=== PATIENT | female | born 1995 | race Two or more races ===

== ENCOUNTER 2016-10-12 11:55 | Emergency (ER) | payer OTHER ==
[2016-10-12] MEDS ORDERED: NS 1,000 ML IV ONE (12:06)
[2016-10-12 12:38] LABS: % IMMATURE GRANULYOCYTES 0.4 % (0.0-1.1); ABSOLUTE IMMATURE GRANULOCYTES 0.04 10^3/uL (0.00-0.10); ADD DIFF? NO; ADD MORPH? NO; ADD SCAN? NO; ATYPICAL LYMPHOCYTE FLAG 30 (0-99); FRAGMENT RBC FLAG 0 (0-99); HEMATOCRIT 37.6 % (38.0-47.0); HEMOGLOBIN 12.4 g/dL (12.6-16.3); LEFT SHIFT FLG 0 (0-99); LIPEMIA HEMOLYSIS FLAG 80 (0-99); MEAN CELL HEMOGLOBIN 29.3 pg (27.9-34.1); MEAN CELL VOLUME 88.9 fL (81.5-99.8); MEAN PLATELET VOLUME 11.4 fL (8.7-11.7); PLATELET CLUMPS FLAG 10 (0-99); PLATELET COUNT 222 10^3/uL (150-400); RED BLOOD CELL COUNT 4.23 10^6/uL (4.18-5.33); RED CELL DISTRIBUTION WIDTH 14.7 % (11.5-15.2)
--- NOTE | 2016-10-12 13:12 | EDPHY ---
H & P Time Seen by Provider: 10/12/16 13:00 HPI/ROS: CHIEF COMPLAINT: Vaginal bleeding HISTORY OF PRESENT ILLNESS: The patient is a 20-year-old female, , with voluntary termination 02/04/16 and miscarriage 05/05/16. Patient is currently and presents with heavy vaginal bleeding that started yesterday. The patient had 5 positive tests and 4 negative tests at home. She reports heavy vaginal bleeding. This morning she passed a large blood clot. While at work today she was standing and felt dizzy and near syncopal. She continues to have vaginal bleeding and is currently wearing 4 pads and continues to bleed through. She complains of abdominal cramping. Her last menstrual cycle was September 14. The patient had a laparoscopic procedure done in April to rule out ectopic . She was found to have a benign cyst. REVIEW OF SYSTEMS: A comprehensive 10 point review of systems is otherwise negative aside from elements mentioned in the history of present illness. Past Medical/Surgical History: A1 Social History: Single. Lives in [place]. Smoking Status: Never smoked Physical Exam: General Appearance: Alert, pleasant Eyes: Pupils equal and round, no conjunctival pallor or injection ENT, Mouth: Mucous membranes moist Neck: Normal inspection Respiratory: Lungs are clear to auscultation Cardiovascular: Regular rate and rhythm Gastrointestinal: Abdomen is soft and non-tender Neurological: A&O, nonfocal, normal gait Skin: Warm and dry, no rash Extremities: Nontender, no pedal edema Psychiatric: Mood and affect normal Constitutional: Initial Vital Signs Temperature (C) 36.7 C 10/12/16 12:01 Heart Rate 92 10/12/16 12:01 Respiratory Rate 18 10/12/16 12:01 Blood Pressure 107/76 10/12/16 12:01 O2 Sat (%) 100 10/12/16 12:01 O2 Delivery Mode Room Air Allergies/Adverse Reactions: No Known Allergies Allergy (Verified 10/12/16 12:00) Home Medications: Medication Instructions Recorded NK [No Known Home Meds] 10/12/16 Medical Decision Making - Diagnostics Imaging Results: Imaging Impressions Obstetrics Ultrasound 10/12/16 13:01 Impression: Heterogeneously-thickened, relatively avascular endometrium, most consistent with hemorrhage. There is no viable intrauterine , nor is there any adnexal mass or free fluid. Findings were discussed with LOLIS STONE MD at 13:58, on 10/12/2016. Procedures: 2:30 p.m.-pelvic exam performed by me. There is tissue in the cervical os. Ring tip forceps were used to gently remove the tissue. This was accomplished without any resistance. Patient reports resolution of pelvic cramping. There is no active vaginal bleeding. This is consistent with a spontaneous miscarriage. ED Course/Re-evaluation: The patient is a 20-year-old female with positive urine test who presents with heavy vaginal bleeding. The patient passed a large clot this morning. She felt faint and near syncopal while at work. She continues to have moderate abdominal cramping. Obstetrics ultrasound was ordered. US show no viable intrauterine . Pelvic examination is consistent with spontaneous miscarriage. Blood type: O+ 3:30 p.m.-continues to feel better. No abdominal cramping and minimal vaginal bleeding. Will discharge this patient home. Plan to follow up with [facility]. Differential Diagnosis: Differential diagnosis includes though it is not limited to ectopic , ovarian cyst, ovarian torsion, PID, UTI, appendicitis. - Data Points Laboratory Results: Laboratory Results 10/12/16 12:25 10/12/16 10/12/16 10/12/16 14:35 12:25 12:25 WBC RBC Hgb Hct MCV MCH MCHC RDW Plt Count MPV Neut % (Auto) Lymph % (Auto) Oliver % (Auto) Eos % (Auto) Baso % (Auto) Nucleat RBC Rel Count Absolute Neuts (auto) Absolute Lymphs (auto) Absolute Monos (auto) Absolute Eos (auto) Absolute Basos (auto) Absolute Nucleated RBC Immature Gran % Immature Gran # Beta HCG, Qual Beta HCG, Quant 3478.40 mIU/mL H mIU/mL (0-4.83) Pathology Specimen Pending Patient ABO/Rh O POSITIVE 10/12/16 10/12/16 12:25 12:25 WBC 10.73 10^3/uL H 10^3/uL (3.80-9.50) RBC 4.23 10^6/uL 10^6/uL (4.18-5.33) Hgb 12.4 g/dL L g/dL (12.6-16.3) Hct 37.6 % L % (38.0-47.0) MCV 88.9 fL fL (81.5-99.8) MCH 29.3 pg pg (27.9-34.1) MCHC 33.0 g/dL g/dL (32.4-36.7) RDW 14.7 % % (11.5-15.2) Plt Count 222 10^3/uL 10^3/uL (150-400) MPV 11.4 fL fL (8.7-11.7) Neut % (Auto) 68.7 % % (39.3-74.2) Lymph % (Auto) 21.2 % % (15.0-45.0) Oliver % (Auto) 7.0 % % (4.5-13.0) Eos % (Auto) 2.2 % % (0.6-7.6) Baso % (Auto) 0.5 % % (0.3-1.7) Nucleat RBC Rel Count 0.0 % % (0.0-0.2) Absolute Neuts (auto) 7.38 10^3/uL H 10^3/uL (1.70-6.50) Absolute Lymphs (auto) 2.27 10^3/uL 10^3/uL (1.00-3.00) Absolute Monos (auto) 0.75 10^3/uL 10^3/uL (0.30-0.80) Absolute Eos (auto) 0.24 10^3/uL 10^3/uL (0.03-0.40) Absolute Basos (auto) 0.05 10^3/uL 10^3/uL (0.02-0.10) Absolute Nucleated RBC 0.00 10^3/uL 10^3/uL (0-0.01) Immature Gran % 0.4 % % (0.0-1.1) Immature Gran # 0.04 10^3/uL 10^3/uL (0.00-0.10) Beta HCG, Qual POSITIVE Beta HCG, Quant Pathology Specimen Patient ABO/Rh Medications Given: Discontinued Medications Sodium Chloride (Ns) 1,000 mls @ 0 mls/hr IV ONCE ONE PRN Reason: Wide Open Stop: 10/12/16 12:07 Last Admin: 10/12/16 12:32 Dose: 1,000 mls Departure - Departure Disposition: Home, Routine, Self-Care Clinical Impression: Spontaneous miscarriage Condition: Good Instructions: Miscarriage (ED) Additional Instructions: Please followup with Tracy Herrmann with [facility]. Drink plenty of fluids. Take a multivitamin with iron daily. Return to the Emergency Department with severe cramping, heavy bleeding, fever, or worsening symptoms. Referrals: Tracy Herrmann PA [[facility]] - As per Instructions Report Scribed for: Lolis Stone Report Scribed by: Ranjana Aparicio Date of Report: 10/12/16 Time of Report: 13:02 Physician Review and Approval Statement: 10/12/16 13:02 Portions of this note were transcribed by a medical office secretary. I personally performed the history, physical exam, and medical decision-making; and confirmed the accuracy of the information in the transcribed note.
[2016-10-12 15:54] VITALS: BP 110/57; PULSE 78; RESP 16; TEMP 99; O2SAT 97
== END 2016-10-12 15:57 | disposition home or self-care (01) ==
DX: O03.9 Complete or unspecified spontaneous abortion without complication (principal); Z3A.00 Weeks of gestation of pregnancy not specified